=== PATIENT | female | born 1955 | race Caucasian/White ===

== ENCOUNTER 2018-11-28 18:17 | Emergency (ER) | payer BC ==
[2018-11-28] MEDS: KETOROLAC 30 MG INJ IM (19:53)
== END 2018-11-28 22:46 | disposition home or self-care (01) ==
LOC: FTE 18:17
DX: S01.81XA Laceration without foreign body of other part of head, initial encounter (principal); E11.9 Type 2 diabetes mellitus without complications; W01.0XXA Fall on same level from slipping, tripping and stumbling without subsequent striking against object, initial encounter; Y92.9 Unspecified place or not applicable
CPT/HCPCS: 70450; 70486; 72125; 96372; 99285-25